=== PATIENT | male | born 1990 | race African-American/Black ===

== ENCOUNTER 2021-08-02 23:53 | Inpatient (IN) | payer OTHER ==
[2021-08-03 04:02] VITALS: BMI 35.5
[2021-08-03] MEDS: hydrALAZINE 20 MG/ML VIAL SLOW IVP PRN ×2 (04:31→14:30)
[2021-08-03] MEDS ORDERED: Acetaminophen 650 MG Suppository PR PRN (04:33)
[2021-08-03] MEDS ORDERED: Ondansetron PF 4 MG/2 ML Vial IVP PRN (04:33)
[2021-08-03] MEDS ORDERED: Ondansetron ODT 4 MG TAB PO PRN (04:33)
[2021-08-03 05:37] LABS: Hemoglobin 14.7 g/dL (14.0-18.0); Mean Corpuscular HGB CONC 31.8 g/dL (32.0-36.0); Mean Corpuscular Hemoglobin 27.8 pg (27.0-31.0); Mean Corpuscular Volume 87.6 fL (78.0-98.0); Mean Platelet Volume 8.7 fL (7.4-10.4); Platelet Count 205 thou/uL (130-400); RBC Distribution Width 12.1 % (11.5-14.5); Red Blood Cell (RBC) Count 5.27 mill/uL (4.70-6.10); White Blood Cell (WBC) Count 6.2 thou/uL (4.8-10.8)
[2021-08-03] MEDS ORDERED: Dextrose 5% in Water 1,000 ML IV PRN (05:48)
[2021-08-03] MEDS ORDERED: HumaLOG 300 UNITS/3 ML VIAL SC PRN (05:48)
[2021-08-03] MEDS ORDERED: Dextrose 50% Abboject 50 ML SYRINGE SLOW IVP PRN (05:48)
[2021-08-03 05:55] LABS: Anion Gap 15 mmol/L (10-20); BUN (Urea Nitrogen) 8 mg/dL (8.9-20.6); Calc. Creatinine Clearance 168 mL/min (70-130); Calcium 9.4 mg/dL (7.8-10.44); Carbon Dioxide 23 mmol/L (22-29); Chloride 102 mmol/L (98-107); Glucose 315 mg/dL (70-105); Potassium 3.5 mmol/L (3.5-5.1); Sodium 136 mmol/L (136-145)
[2021-08-03 05:57] LABS: Carbamazepine-Tegretol 18.9 ug/mL (4.0-12.0)
[2021-08-03] MEDS: Sodium Chloride 0.9% 1,000 ML IV SCH ×2 (06:06→14:30)
[2021-08-03 06:17] LABS: Lymphocytes 53 % (21-51); MDiff Complete? YES; Monocytes 3 % (0-10); Neutrophil 43 % (42-75); Reactive Lymphocytes 1 % (0-10)
[2021-08-03] MEDS: HumaLOG 300 UNITS/3 ML VIAL SC PRN ×3 (06:39→16:15)
[2021-08-03] MEDS: metFORMIN 500 MG TAB PO SCH ×2 (08:33→17:52)
[2021-08-03] MEDS: Amlodipine 10 MG TAB PO SCH (08:33)
[2021-08-03] MEDS: Lisinopril 20 MG TAB PO SCH (08:34)
[2021-08-03 09:19] LABS: Carbamazepine-Tegretol 18.8 ug/mL (4.0-12.0)
[2021-08-03] MEDS: Labetalol HCl 100 MG/20 ML VIAL SLOW IVP PRN (10:14)
[2021-08-03 13:02] LABS: Carbamazepine-Tegretol 17.4 ug/mL (4.0-12.0)
[2021-08-03] MEDS: Acetaminophen 325 MG TAB PO PRN (16:13)
[2021-08-03 16:49] LABS: SARS-CoV-2 PCR by NAA Not Detected (NotDetected)
[2021-08-03] MEDS: Labetalol 100 MG TAB PO SCH (20:18)
[2021-08-03] MEDS: Atorvastatin Calcium 20 MG TAB PO SCH (20:18)
[2021-08-03] MEDS: diphenhydrAMINE 50 MG CAP PO SCH (20:19)
[2021-08-03] MEDS: guanFACINE HCl 1 MG TAB PO SCH (20:19)
[2021-08-04] MEDS ORDERED: Aripiprazole 10 MG TAB PO SCH (02:00)
[2021-08-04] MEDS: Sodium Chloride 0.9% 1,000 ML IV SCH ×3 (03:17→22:11)
[2021-08-04 06:36] LABS: Mean Corpuscular HGB CONC 33.7 g/dL (32.0-36.0); Mean Corpuscular Hemoglobin 29.4 pg (27.0-31.0); Mean Corpuscular Volume 87.2 fL (78.0-98.0); Mean Platelet Volume 8.5 fL (7.4-10.4); Platelet Count 184 thou/uL (130-400); RBC Distribution Width 12.3 % (11.5-14.5); Red Blood Cell (RBC) Count 5.09 mill/uL (4.70-6.10)
[2021-08-04 06:43] LABS: Anion Gap 13 mmol/L (10-20); BUN (Urea Nitrogen) 8 mg/dL (8.9-20.6); Calc. Creatinine Clearance 200 mL/min (70-130); Calcium 9.2 mg/dL (7.8-10.44); Carbon Dioxide 22 mmol/L (22-29); Chloride 106 mmol/L (98-107); Glucose 207 mg/dL (70-105); Potassium 3.7 mmol/L (3.5-5.1); Sodium 137 mmol/L (136-145)
[2021-08-04 06:55] LABS: Band 3 % (5-11); Eosinophils 3 % (0-10); Lymphocytes 58 % (21-51); MDiff Complete? YES; Monocytes 6 % (0-10); Neutrophil 30 % (42-75)
[2021-08-04] MEDS: metFORMIN 500 MG TAB PO SCH ×2 (09:49→17:47)
[2021-08-04] MEDS: Labetalol 100 MG TAB PO SCH ×2 (09:50→20:36)
[2021-08-04] MEDS: Aripiprazole 10 MG TAB PO SCH (09:50)
[2021-08-04] MEDS: Lisinopril 20 MG TAB PO SCH (09:51)
[2021-08-04] MEDS: Amlodipine 10 MG TAB PO SCH (09:51)
[2021-08-04] MEDS: HumaLOG 300 UNITS/3 ML VIAL SC PRN ×2 (12:48→17:47)
[2021-08-04] MEDS: diphenhydrAMINE 50 MG CAP PO SCH (20:35)
[2021-08-04] MEDS: Atorvastatin Calcium 20 MG TAB PO SCH (20:36)
[2021-08-04] MEDS: guanFACINE HCl 1 MG TAB PO SCH (20:36)
[2021-08-05] MEDS: HumaLOG 300 UNITS/3 ML VIAL SC PRN ×3 (06:15→16:35)
[2021-08-05 08:28] LABS: Hemoglobin A1c 11.7 % (4.0-6.0)
[2021-08-05 08:44] LABS: Anion Gap 11 mmol/L (10-20); BUN (Urea Nitrogen) 12 mg/dL (8.9-20.6); Calc. Creatinine Clearance 198 mL/min (70-130); Calcium 9.6 mg/dL (7.8-10.44); Carbon Dioxide 25 mmol/L (22-29); Chloride 106 mmol/L (98-107); Glucose 233 mg/dL (70-105); Potassium 3.9 mmol/L (3.5-5.1); Sodium 138 mmol/L (136-145)
[2021-08-05 08:50] LABS: Carbamazepine-Tegretol 6.6 ug/mL (4.0-12.0)
[2021-08-05] MEDS: Sodium Chloride 0.9% 1,000 ML IV SCH ×2 (09:05→18:09)
[2021-08-05] MEDS: Amlodipine 10 MG TAB PO SCH (09:06)
[2021-08-05] MEDS: metFORMIN 500 MG TAB PO SCH ×2 (09:06→16:24)
[2021-08-05] MEDS: Labetalol 100 MG TAB PO SCH ×2 (09:06→19:53)
[2021-08-05] MEDS: Lisinopril 20 MG TAB PO SCH (09:06)
[2021-08-05] MEDS: Aripiprazole 10 MG TAB PO SCH (09:07)
[2021-08-05 09:15] LABS: Band 1 % (5-11); Eosinophils 1 % (0-10); Lymphocytes 52 % (21-51); MDiff Complete? YES; Mean Corpuscular HGB CONC 32.1 g/dL (32.0-36.0); Mean Corpuscular Hemoglobin 27.9 pg (27.0-31.0); Mean Corpuscular Volume 86.9 fL (78.0-98.0); Mean Platelet Volume 9.2 fL (7.4-10.4); Monocytes 3 % (0-10); Neutrophil 42 % (42-75); Platelet Count 188 thou/uL (130-400); Platelet Morphology Comment Appears Adequate; RBC Distribution Width 12.2 % (11.5-14.5); RBC Morphology Normal; Reactive Lymphocytes 1 % (0-10); Red Blood Cell (RBC) Count 5.03 mill/uL (4.70-6.10); White Blood Cell (WBC) Count 6.6 thou/uL (4.8-10.8)
[2021-08-05] MEDS: Acetaminophen 325 MG TAB PO PRN (16:24)
[2021-08-05] MEDS: Labetalol HCl 100 MG/20 ML VIAL SLOW IVP PRN (16:24)
[2021-08-05] MEDS ORDERED: glipiZIDE 5 MG TAB PO SCH (16:30)
[2021-08-05 17:36] VITALS: BP 166/100; TEMP 97.5
[2021-08-05] MEDS: Atorvastatin Calcium 20 MG TAB PO SCH (19:53)
[2021-08-05] MEDS: diphenhydrAMINE 50 MG CAP PO SCH (19:53)
[2021-08-05] MEDS: guanFACINE HCl 1 MG TAB PO SCH (19:53)
== END 2021-08-05 22:00 | DRG 918 ==
LOC: SJJU 23:53 → EEVIPCON 23:53 → UNDOADMOB 23:53 → SJJU 08-03 02:42 → INTOOBSV 08-03 17:28 → OBSVTOIN 08-03 17:28
PROVIDERS: ADMIT Student in an Organized Health Care Education/Training Program; ATTEND Internal Medicine
DX: T42.1X2A Poisoning by iminostilbenes, intentional self-harm, initial encounter (principal); I10 Essential (primary) hypertension; E11.69 Type 2 diabetes mellitus with other specified complication; E78.5 Hyperlipidemia, unspecified; E66.9 Obesity, unspecified; F31.9 Bipolar disorder, unspecified; Z88.8 Allergy status to other drugs, medicaments and biological substances; Z79.899 Other long term (current) drug therapy; Z87.891 Personal history of nicotine dependence; Y92.89 Other specified places as the place of occurrence of the external cause; Z68.35 Body mass index [BMI] 35.0-35.9, adult
CPT/HCPCS: 36415; 36416; 80048; 80156; 83036; 85025; J0360; J1815; J7050; U0003; U0005